=== PATIENT | male | born 1945 | race Caucasian/White ===

== ENCOUNTER 2017-01-10 07:10 | Day surgery (SDC) | payer MEDICARE ==
[2017-01-10 09:15] VITALS: BMI 24.2
[2017-01-10] MEDS ORDERED: Lactated Ringer's 500 ML IV ONE (09:23)
[2017-01-10] MEDS ORDERED: Propofol 10 mg/ml Inj (20 ML) ONE (11:26)
[2017-01-10 12:10] VITALS: PULSE 61; O2SAT 100
[2017-01-10 12:12] VITALS: BP 134/71; RESP 14; TEMP 97.4
== END 2017-01-10 12:13 | disposition home or self-care (01) ==
LOC: H.ENDO 07:10
PROVIDERS: ATTEND Internal Medicine Gastroenterology
DX: D64.9 Anemia, unspecified (principal); K57.30 Diverticulosis of large intestine without perforation or abscess without bleeding; K64.8 Other hemorrhoids
CPT/HCPCS: 45378; J2704; J7120